=== PATIENT | female | born 2000 | race Caucasian/White ===

== ENCOUNTER 2019-11-22 18:16 | Emergency (ER) | payer OTHER ==
[2019-11-22] MEDS ORDERED: KETOROLAC TROMETHAMINE 30 MG/1 ML VIAL IM ONE (18:27)
--- NOTE | 2019-11-22 18:27 | PDOC ---
Rapid Medical Evaluation Time Seen by Provider: 11/22/19 18:25 Medical Evaluation: 11/22/19 18:26 CC: back pain s/p fall at work x5 days. Has ortho appt Tuesday PE: No bony tenderness. Orders: toradol Patient will proceed to ED for further evaluation. Discharge Disposition - Diagnosis Back pain - Referrals - Patient Instructions - Post Discharge Activity
[2019-11-22 18:28] VITALS: BP 124/77; PULSE 72; TEMP 98.2; BMI 26.4
[2019-11-22] MEDS ORDERED: IBUPROFEN 600 MG TABLET (FP) PO ONE (19:18)
--- NOTE | 2019-11-22 19:18 | PDOC ---
History of Present Illness - General Chief Complaint: Injury Stated Complaint: PAIN Time Seen by Provider: 11/22/19 18:25 History Source: Patient - History of Present Illness Initial Comments: 11/22/19 19:20 Chief complaint: Fall Patient is a 19-year-old female with history of asthma who states she was at work on Tuesday, slipped and fell onto her left side injuring her shoulder and hip and leg. Patient did not think much of it. Patient is having pain, is limping. She was unable to go to work. She made an appointment with an orthopedist but is not till next week. Has not taken any pain medicine. GENERAL/CONSTITUTIONAL: No fever, weakness. dizziness HEAD, EYES, EARS, NOSE AND THROAT: No change in vision. No ear pain or discharge. No sore throat. CARDIOVASCULAR: No chest pain RESPIRATORY: No shortness of breath or cough GASTROINTESTINAL: No pain, nausea, vomiting, diarrhea or constipation GENITOURINARY: No dysuria MUSCULOSKELETAL: No neck or back pain, + left shoulder, left hip, left knee SKIN: No rash NEUROLOGIC: No headache, vertigo, loss of consciousness, or loss of sensation. GENERAL: The patient is awake, alert, and fully oriented, in no acute distress. HEAD: Normal with no signs of trauma. EYES: Pupils equal, round and reactive to light, sclera anicteric, conjunctiva clear. ENT: pharynx: no erythema, no exudate, uvula midline NECK: supple CHEST: clear, nontender, rr ABD: soft, nontender BACK: no tenderness or signs of injury EXTREMITIES: Left shoulder with mild tenderness, good range of motion, no ecchymosis or deformity, neurovascular intact. Left hip with tenderness, no ecchymosis, mildly limited range of motion, knee with mild tenderness, no ecchymosis or deformity, neurovascular intact. Rest of extremities normal range of motion, no edema. NEUROLOGICAL: Normal speech, cranial nerves II through XII grossly intact, no gross focal abnormalities SKIN: Warm, Dry Past History - Past Medical History Allergies/Adverse Reactions: Allergies Allergy/AdvReac Type Severity Reaction Status Date / Time strawberry Allergy Verified 11/22/19 18:28 Asthma: Yes COPD: No Diabetes: Yes (PRE) - Immunization History Immunization Up to Date: Yes - Psycho Social/Smoking Cessation Hx Smoking History: Never smoked Have you smoked in the past 12 months: No Information on smoking cessation initiated: No Hx Alcohol Use: No Drug/Substance Use Hx: No *Physical Exam - Vital Signs Last Vital Signs Temp Pulse Resp BP Pulse Ox 98.2 F 72 17 124/77 100 11/22/19 18:23 11/22/19 18:23 11/22/19 18:23 11/22/19 18:23 11/22/19 18:23 Medical Decision Making - Medical Decision Making 11/22/19 21:46 hCG is negative, x-rays are negative, Discussed issues, findings, results, applicable medications and treatments and follow-up. All these were understood and all questions were answered Discharge - Discharge Information Problems reviewed: Yes Clinical Impression/Diagnosis: Contusion, hip Qualifiers: Encounter type: initial encounter Laterality: left Qualified Code(s): S70.02XA - Contusion of left hip, initial encounter Shoulder contusion Qualifiers: Encounter type: initial encounter Laterality: left Qualified Code(s): S40.012A - Contusion of left shoulder, initial encounter Knee injury Qualifiers: Encounter type: initial encounter Laterality: left Qualified Code(s): S89.92XA - Unspecified injury of left lower leg, initial encounter - Admission No - Follow up/Referral - Patient Discharge Instructions Patient Printed Discharge Instructions: DI for Contusion Additional Instructions: You can apply ice for 20 minutes every 2 hours for the next 2 days Motrin 600 mg every 6 hours for pain. Follow-up with orthopedist as scheduled on Tuesday - Post Discharge Activity Work/Back to School Note: Back to Work
== END 2019-11-22 21:55 | disposition home or self-care (01) ==
LOC: JERFT 18:16
DX: S70.02XA Contusion of left hip, initial encounter (principal); S40.012A Contusion of left shoulder, initial encounter; S89.82XA Other specified injuries of left lower leg, initial encounter; W01.0XXA Fall on same level from slipping, tripping and stumbling without subsequent striking against object, initial encounter; Y93.89 Activity, other specified; Y92.59 Other trade areas as the place of occurrence of the external cause; Y99.0 Civilian activity done for income or pay; J45.909 Unspecified asthma, uncomplicated; R73.03 Prediabetes
CPT/HCPCS: 73030-TC-LT-FY; 73523-TC-FY; 73562-TC-LT-FY; 84703; 99281-25

== ENCOUNTER 2023-04-04 19:42 | Emergency (ER) | payer OTHER ==
[2023-04-04 19:46] VITALS: BP 118/71; PULSE 78; RESP 18; TEMP 98.5; BMI 25.4
[2023-04-04] MEDS ORDERED: MAG HYDROX/ALH/SMC/DPHA/LIDO 240 ML MOUTHWASH MM SCH (21:35)
[2023-04-04] MEDS ORDERED: PANTOPRAZOLE 40 MG TABLET PO ONE ×2 (21:59→22:06)
[2023-04-05] MEDS ORDERED: MAG HYDROX/ALH/SMC/DPHA/LIDO 240 ML MOUTHWASH MM SCH ×2 (21:15)
== END 2023-04-04 22:27 | disposition home or self-care (01) ==
LOC: JER 19:42
DX: R10.13 Epigastric pain (principal); R11.0 Nausea; K29.00 Acute gastritis without bleeding
CPT/HCPCS: 76705-TC; 99284-25